=== PATIENT | female | born 1975 | race Caucasian/White ===

== ENCOUNTER 2017-11-16 17:09 | Emergency (ER) | payer OTHER ==
[~2017-11-16] VITALS: Ht 162.6 cm; Wt 74.8 kg
== END 2017-11-16 21:02 | disposition home or self-care (01) ==
LOC: ER 17:09
DX: N83.202 Unspecified ovarian cyst, left side (principal); N83.201 Unspecified ovarian cyst, right side; R10.31 Right lower quadrant pain

== ENCOUNTER 2017-12-06 13:27 | Outpatient (CLI) | payer OTHER | END 2017-12-06 13:41 | disposition home or self-care (01) | LOC: SONOGRAMA 13:27 → MAMO-SONO 13:45 | DX: R10.2 Pelvic and perineal pain (principal) ==

== ENCOUNTER 2020-06-09 09:29 | Emergency (ER) | payer OTHER ==
[~2020-06-09] VITALS: Ht 162.6 cm; Wt 80.7 kg
[2020-06-09] MEDS ORDERED: KETO10TA2 PO (16:36)
[2020-06-09] MEDS ORDERED: ZANAFLEX4 M1 PO (16:36)
== END 2020-06-09 16:43 | disposition home or self-care (01) ==
LOC: ER 09:29
DX: M54.2 Cervicalgia (principal); F06.4 Anxiety disorder due to known physiological condition; R07.89 Other chest pain